=== PATIENT | female | born 1950 | race Caucasian/White ===

== ENCOUNTER → 2020-05-02 | Outpatient (CLI) | payer MEDICARE, OTHER ==
--- NOTE | 2020-05-06 16:29 | RAD ---
BILATERAL SCREENING MAMMOGRAM, 3-D History: Routine screening. Comparison: 01/10/2016, 04/21/2018, 04/23/2019. Technique: MLO and CC digital tomosynthesis (3D) images obtained. Radiologist reviewed these images on dedicated workstation. Findings: Breast Tissue Density B : There are scattered areas of fibroglandular density. There are no dominant masses, suspicious microcalcifications, or architectural distortion. IMPRESSION: No mammographic evidence of malignancy. Recommend routine screening. BI-RADS category 1: Negative. The images were reviewed with computer-aided detection. Patient information is entered into reminder system with a target due date for the next screening mammogram. Mammography is the most sensitive method for finding small breast cancers, but it does not detect them all and is not a substitute for careful clinical examination. A negative mammogram does not negate a clinically suspicious finding and should not result in delay in biopsying a clinically suspicious abnormality. "Our facility is accredited by the [employer] Mammography Program." Electronically signed by: Preston Vasquez MD (05/06/2020 4:26 PM) [email or web address]
== END ==
LOC: MAMMO 13:16
PROVIDERS: ATTEND Family Medicine
DX: Z12.31 Encounter for screening mammogram for malignant neoplasm of breast (principal)
CPT/HCPCS: 77063; 77067

== ENCOUNTER → 2021-06-23 | Outpatient (CLI) | payer MEDICARE, OTHER ==
--- NOTE | 2021-06-23 12:47 | RAD ---
History: 71-year-old a symptomatically the patient presents for routine screening mammogram. PROCEDURE: 3-D tomosynthesis was performed of the breasts bilaterally. 2-D C-view craniocaudal and mediolateral oblique digital mammograms were also generated. The images were also evaluated with Jaco Solarsier-aided detection and the CAD results were analyzed. Previous: Bilateral mammogram from 05/02/2020 and priors. FINDINGS: Density level B: There are scattered fibroglandular densities. There are no suspicious masses, suspic ious microcalcifications or areas of architectural distortion.Stable nodule perhaps a lymph node is s een in the outer left breast. There are benign-appearing calcifications in the right breast. IMPRESSION: Benign mammogram. Patient information was entered into the [employer] reminder system with a target due date for the next screening mammogram . Routine annual screening mammogram in one year ad vised. BI-RADS Category 2: Benign. A mammogram does not have 100% sensitivity and therefore a negative imaging study should not delay fu rther work up of a suspicious abnormality. PQRS compliance statement: Patient information was entered into the [employer] reminder system with a ta rget due date for the next screening mammogram . Routine annual screening mammogram in one year advis ed. "Our facility is accredited by the [employer] Mammography Program." Electronically signed by: Jennie Jimenez MD (06/23/2021 12:45 PM) [id number]
== END ==
LOC: MAMMO 09:43
PROVIDERS: ATTEND Family Medicine
DX: Z12.31 Encounter for screening mammogram for malignant neoplasm of breast (principal)
CPT/HCPCS: 77063; 77067